=== PATIENT | male | born 1965 | race Caucasian/White ===

== ENCOUNTER 2016-09-10 12:39 | Inpatient (IN) | payer BC, OTHER ==
[2016-09-10 13:47] LABS: Hematocrit 43 % (42-52); Hemoglobin 14.5 g/dl (14.0-18.0); Mean Corpuscular HGB Conc 34 g/dl (31-36); Mean Corpuscular Hemoglobin 30 pg (27-31); Mean Corpuscular Volume 88 fL (80-94); Mean Platelet Volume 8 um3 (7.4-10.4); Red Blood Count 4.86 10^6/ul (4.0-5.4); Red Cell Distribution Width 14 % (10.5-15); White Blood Count 6.5 10^3/ul (3.5-10.8)
[2016-09-10 14:02] LABS: ALT 27 U/L (7-52); AST 18 U/L (13-39); Albumin 4.1 g/dL (3.2-5.2); Alkaline Phosphatase 58 U/L (34-104); Anion Gap 6 mmol/L (2-11); BUN/Creatinine Ratio 15.2 (8-20); Blood Urea Nitrogen 10 mg/dL (6-24); CO2 Carbon Dioxide 23 mmol/L (22-32); Calcium 9.1 mg/dL (8.6-10.3); Chloride 107 mmol/L (101-111); EGFR African American 163.6 (>60); EGFR Non-African American 127.2 (>60); Globulin 2.8 g/dL (2-4); Glucose 180 mg/dL (70-100); Potassium 3.9 mmol/L (3.5-5.0); Sodium 136 mmol/L (133-145); Total Protein 6.9 g/dL (6.4-8.9)
[2016-09-10 14:18] LABS: Urine Bilirubin Negative (Negative); Urine Glucose 2+(150 mg/dL) (Negative); Urine Nitrite Negative (Negative)
[2016-09-10 14:18] LABS: Acetaminophen < 15 mcg/mL; Alcohol < 10 mg/dL (<10); Salicylate < 2.50 mg/dL (<30)
[2016-09-10 14:22] LABS: Benzodiazepine Urine Screen Presumptive Positive (None Detect)
[2016-09-10 14:28] LABS: TSH (Thyroid Stimulating Horm) 0.81 mcIU/mL (0.34-5.60)
[2016-09-10] MEDS ORDERED: LORazepam TAB(*) 1 MG PO ONE (16:17)
[2016-09-10] MEDS ORDERED: Haloperidol TAB* 5 MG PO ONE (16:17)
--- NOTE | 2016-09-10 20:25 | ED ---
I, Oh,Soohzoraida, scribed for Frankie Barrera MD on 09/10/16 at 1327 . Psychiatric Complaint - HPI Summary HPI Summary: Female family member present at bedside answers most of the questions. This 50 y/o male presents to ED for auditory hallucination and paranoia since weeks ago. Pt is reported to have made paranoid comments at work, involving someone stealing his money. Family member present at bedside reports sleep disturbances. Pt reports good appetite, and denies any self harm. PMHx does not include HTN or DM. Pt is currently not on lithium. Pt chews tobacco. 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 - History Of Current Complaint Chief Complaint: [facility]ental[facility] Time Seen by Provider: 09/10/16 13:08 Hx Obtained From: Patient, Family/Filler Operator Onset/Duration: Gradual Onset, Still Present Timing: Constant Severity Initially: Moderate Severity Currently: Moderate Character: Manic, Anxious Aggravating Factor(s): Nothing Alleviating Factor(s): Nothing Associated Signs And Symptoms: Positive: Sleep Disturbance - Allergies/Home Medications Allergies/Adverse Reactions: Allergies Allergy/AdvReac Type Severity Reaction Status Date / Time No Known Allergies Allergy Verified 10/09/12 17:57 Home Medications: Home Medications Diazepam TAB(*) [Valium TAB(*)] 10 mg PO TID 09/10/16 [History Confirmed ] Gabapentin TAB(NF) [Neurontin 600 mg TAB(NF)] 600 mg PO TID 09/10/16 [History Confirmed 09/10/16] QUEtiapine TAB* [SEROquel TAB*] 100 mg PO BEDTIME 09/10/16 [History Confirmed ] Sertraline* [Zoloft*] 200 mg PO DAILY 09/10/16 [History Confirmed 09/10/16] Zolpidem TAB* [Ambien TAB*] 10 mg PO BEDTIME PRN 09/10/16 [History Confirmed 05/19] guanFACINE TAB* [Tenex TAB*] 2 mg PO BEDTIME 09/10/16 [History Confirmed ] PMH/Surg Hx/FS Hx/Imm Hx Endocrine/Hematology History: Denies: Hx Anticoagulant Therapy, Hx Diabetes, Hx Thyroid Disease Cardiovascular History: Denies: Hx Hypertension, Hx Pacemaker/ICD Respiratory History: Denies: Hx Asthma, Hx Chronic Obstructive Pulmonary Disease (COPD) History: Denies: Hx Renal Disease Neurological History: Denies: Hx Dementia, Hx Seizures Psychiatric History: Denies: Hx Substance Abuse Infectious Disease History: No Infectious Disease History: Denies: Hx Hepatitis, Hx Human Immunodeficiency Virus (HIV), Traveled Outside the [place] in Last 30 Days - Family History Known Family History: Negative: Cardiac Disease - Social History Occupation: Employed Full-time - 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 The skin is warm and dry and skin color reflects adequate perfusion. Good skin turgor. HEENT: The head is normocephalic and atraumatic. The pupils are equal and reactive. The conjunctivae are clear and without drainage. Nares are patent and without drainage. Mouth reveals moist mucous membranes and the throat is without erythema and exudate. The external ears are intact. The ear canals are patent and without drainage. The tympanic membranes are intact. Neck is supple with full range of motion and non-tender. There are no carotid bruits. There is no neck vein distension. Respiratory: Chest is non-tender. Lungs are clear to auscultation and breath sounds are symmetrical and equal. Cardiovascular: Hear is regular rate and rhythm. There is no murmur or rub auscultated. There is no peripheral edema and pulses are symmetrical and equal. Abdomen: The abdomen is soft and non-tender. There are good bowel sounds heard in all four quadrants and there is no organomegaly palpated. Musculoskeletal: There is no back pain noted. Extremities are non-tender with full range of motion. There is good capillary refill. There is no peripheral edema or calf tenderness elicited. Neurological: Patient is alert and oriented to person, place and time. The patient has symmetrical motor strength in all four extremities and LOGAN. Cranial nerves are grossly intact. Deep tendon reflexes are symmetrical and equal in all four extremities. Psychiatric: Flat affect. Mild paranoia. Triage Information Reviewed: Yes Vital Signs On Initial Exam: Initial Vitals Temp Pulse Resp BP Pulse Ox 98.2 F 69 15 148/74 100 09/10/16 12:48 09/10/16 12:48 09/10/16 12:48 09/10/16 12:48 09/10/16 12:48 Vital Signs Reviewed: Yes Diagnostics - Vital Signs Vital Signs Temp Pulse Resp BP Pulse Ox 09/10/16 12:48 98.2 F 69 15 148/74 100 - Laboratory Lab Results: Lab Results 09/10/16 09/10/16 09/10/16 Range/Units 13:35 13:35 13:58 WBC 6.5 (3.5-10.8) 10^3/ul RBC 4.86 (4.0-5.4) 10^6/ul Hgb 14.5 (14.0-18.0) g/dl Hct 43 (42-52) % MCV 88 (80-94) fL MCH 30 (27-31) pg MCHC 34 (31-36) g/dl RDW 14 (10.5-15) % Plt Count 171 (150-450) 10^3/ul MPV 8 (7.4-10.4) um3 Neut % (Auto) 64.2 (38-83) % Lymph % (Auto) 24.3 L (25-47) % Kidder % (Auto) 8.9 (1-9) % Eos % (Auto) 1.8 (0-6) % Baso % (Auto) 0.8 (0-2) % Absolute Neuts (auto) 4.2 (1.5-7.7) 10^3/ul Absolute Lymphs (auto) 1.6 (1.0-4.8) 10^3/ul Absolute Monos (auto) 0.6 (0-0.8) 10^3/ul Absolute Eos (auto) 0.1 (0-0.6) 10^3/ul Absolute Basos (auto) 0 (0-0.2) 10^3/ul Absolute Nucleated RBC 0 10^3/ul Nucleated RBC % 0 Sodium 136 (133-145) mmol/L Potassium 3.9 (3.5-5.0) mmol/L Chloride 107 (101-111) mmol/L Carbon Dioxide 23 (22-32) mmol/L Anion Gap 6 (2-11) mmol/L BUN 10 (6-24) mg/dL Creatinine 0.66 L (0.67-1.17) mg/dL Est GFR ( Amer) 163.6 (>60) Est GFR (Non-Af Amer) 127.2 (>60) BUN/Creatinine Ratio 15.2 (8-20) Glucose 180 H (70-100) mg/dL Calcium 9.1 (8.6-10.3) mg/dL Total Bilirubin 0.30 (0.2-1.0) mg/dL AST 18 (13-39) U/L ALT 27 (7-52) U/L Alkaline Phosphatase 58 (34-104) U/L Total Protein 6.9 (6.4-8.9) g/dL Albumin 4.1 (3.2-5.2) g/dL Globulin 2.8 (2-4) g/dL Albumin/Globulin Ratio 1.5 (1-3) TSH 0.81 (0.34-5.60) mcIU/mL Urine Color Yellow Urine Appearance Cloudy Urine pH 5.0 (5-9) Ur Specific Sharps 1.027 (1.010-1.030) Urine Protein Negative (Negative) Urine Ketones Negative (Negative) Urine Blood Negative (Negative) Urine Nitrate Negative (Negative) Urine Bilirubin Negative (Negative) Urine Urobilinogen Negative (Negative) Ur Leukocyte Esterase Negative (Negative) Urine Glucose 2+(150 mg/dl) H (Negative) Salicylates < 2.50 (<30) mg/dL Urine Opiates Screen (None Detect) Acetaminophen < 15 mcg/mL Ur Barbiturates Screen (None Detect) Ur Phencyclidine Scrn (None Detect) Ur Amphetamines Screen (None Detect) U Benzodiazepines Scrn (None Detect) Urine Cocaine Screen (None Detect) U Cannabinoids Screen (None Detect) Serum Alcohol < 10 (<10) mg/dL 09/10/16 Range/Units 13:58 WBC (3.5-10.8) 10^3/ul RBC (4.0-5.4) 10^6/ul Hgb (14.0-18.0) g/dl Hct (42-52) % MCV (80-94) fL MCH (27-31) pg MCHC (31-36) g/dl RDW (10.5-15) % Plt Count (150-450) 10^3/ul MPV (7.4-10.4) um3 Neut % (Auto) (38-83) % Lymph % (Auto) (25-47) % Kidder % (Auto) (1-9) % Eos % (Auto) (0-6) % Baso % (Auto) (0-2) % Absolute Neuts (auto) (1.5-7.7) 10^3/ul Absolute Lymphs (auto) (1.0-4.8) 10^3/ul Absolute Monos (auto) (0-0.8) 10^3/ul Absolute Eos (auto) (0-0.6) 10^3/ul Absolute Basos (auto) (0-0.2) 10^3/ul Absolute Nucleated RBC 10^3/ul Nucleated RBC % Sodium (133-145) mmol/L Potassium (3.5-5.0) mmol/L Chloride (101-111) mmol/L Carbon Dioxide (22-32) mmol/L Anion Gap (2-11) mmol/L BUN (6-24) mg/dL Creatinine (0.67-1.17) mg/dL Est GFR ( Amer) (>60) Est GFR (Non-Af Amer) (>60) BUN/Creatinine Ratio (8-20) Glucose (70-100) mg/dL Calcium (8.6-10.3) mg/dL Total Bilirubin (0.2-1.0) mg/dL AST (13-39) U/L ALT (7-52) U/L Alkaline Phosphatase (34-104) U/L Total Protein (6.4-8.9) g/dL Albumin (3.2-5.2) g/dL Globulin (2-4) g/dL Albumin/Globulin Ratio (1-3) TSH (0.34-5.60) mcIU/mL Urine Color Urine Appearance Urine pH (5-9) Ur Specific Sharps (1.010-1.030) Urine Protein (Negative) Urine Ketones (Negative) Urine Blood (Negative) Urine Nitrate (Negative) Urine Bilirubin (Negative) Urine Urobilinogen (Negative) Ur Leukocyte Esterase (Negative) Urine Glucose (Negative) Salicylates (<30) mg/dL Urine Opiates Screen Presumptive positive H (None Detect) Acetaminophen mcg/mL Ur Barbiturates Screen None detected (None Detect) Ur Phencyclidine Scrn None detected (None Detect) Ur Amphetamines Screen None detected (None Detect) U Benzodiazepines Scrn Presumptive positive H (None Detect) Urine Cocaine Screen None detected (None Detect) U Cannabinoids Screen None detected (None Detect) Serum Alcohol (<10) mg/dL Result Diagrams: 09/10/16 13:35 09/10/16 13:35 Lab Statement: Any lab studies that have been ordered have been reviewed, and results considered in the medical decision making process. Course/Dx - Differential Dx/Clinical Impression Differential Diagnosis/HQI/PQRI: Positive: Acute Psychosis, Depression, Suicidal Ideation, Suicidal Gesture Provider Diagnosis: Psychosis, Depression - Physician Notifications Instructed by Provider To: Admit As Inpatient - voluntary admission Patient Is Medically Stable For: Psych Evaluation - at 1427 PM Discharge - Discharge Plan Condition: Stable Disposition: ADMITTED TO [facility] The documentation as recorded by the Colton loera Soohyun accurately reflects the service I personally performed and the decisions made by , Frankie Barrera MD.
[2016-09-10] MEDS ORDERED: diPHENhydraMINE PO* 50 MG ONE (21:51)
[2016-09-10] MEDS ORDERED: Acetaminophen TAB* 325 MG PO PRN (22:17)
[2016-09-10] MEDS ORDERED: Al Hydrox/Mg Hydrox/Simet LIQ* 30 ML UDC PO PRN (22:17)
[2016-09-10] MEDS ORDERED: diPHENhydraMINE PO* 50 MG PO PRN (22:18)
[2016-09-10] MEDS: Gabapentin CAP(*) 300 MG PO SCH (22:45)
[2016-09-10] MEDS: guanFACINE TAB* 1 MG PO SCH (22:46)
[2016-09-10] MEDS ORDERED: QUEtiapine TAB* 100 MG PO SCH (23:00)
[2016-09-11] MEDS: Vitamin THERAPEUTIC TAB PO SCH (10:52)
[2016-09-11] MEDS: Gabapentin CAP(*) 300 MG PO SCH ×3 (10:52→20:07)
[2016-09-11] MEDS: Sertraline* 100 MG TAB PO SCH (10:53)
--- NOTE | 2016-09-11 13:45 | PN ---
MHU: Group Therapy Note - Service Type Service Type: [id number] Group Psychotherapy - Cognitive Behavioral Group Therapy ( CBT):Patient was attentive and participatory in CBT programming this morning, and remained in good behavioral control. Patient expressed positive insights regarding relevant treatment interventions and goals.
[2016-09-11] MEDS ORDERED: Zolpidem TAB* 5 MG PO PRN (14:28)
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
[2016-09-11] MEDS: guanFACINE TAB* 1 MG PO SCH (20:07)
[2016-09-11] MEDS: Diazepam TAB(*) 5 MG PO SCH (20:08)
[2016-09-11] MEDS: Haloperidol TAB* 5 MG PO SCH (20:08)
--- NOTE | 2016-09-11 20:09 | RAD ---
HISTORY: Auditory hallucinations and paranoia x2 weeks. Requisition includes "concussion" 3 years earlier. COMPARISONS: None TECHNIQUE: The following sequences were obtained of the head: Sagittal T1-weighted images, axial T2-weighted images, axial FLAIR images, axial susceptibility weighted images, axial T1-weighted images. Additionally, axial diffusion-weighted images were obtained with calculated apparent diffusion coefficients.. FINDINGS: HEMORRHAGE/INFARCT: There is no hemorrhage or acute infarct. MASSES/SHIFT: There is no mass or shift. EXTRA-AXIAL SPACES/MENINGES: There are no extra-axial fluid collections. SULCI AND VENTRICLES: The sulci and ventricles are normal in size and position for the patient's stated age. CEREBRUM: There are no focal parenchymal abnormalities. Abutting the inferior aspect of the left frontal lobe (axial image 15 of 32 and sagittal image 15 of 27) there is a fluid density structure that appears to be contiguous with the cribriform plate measuring 1.2 x 2.5 cm in the axial plane and 9 mm in the cephalocaudal dimension. BRAINSTEM: There are no focal parenchymal abnormalities. CEREBELLUM: There are no focal parenchymal abnormalities. The cerebellar tonsils are normal in size and position. SELLA: The sella is normal. PINEAL: The pineal region is clear. CP ANGLE/TEMPORAL BONES: The labyrinthine structures are grossly normal. VESSELS: Normal flow-voids are noted within the visualized vertebral vasculature. DIFFUSION ABNORMALITIES: There are no diffusion abnormalities. PARANASAL SINUSES/MASTOIDS: The paranasal sinuses are clear. ORBITS: The orbits are unremarkable. BONES AND SOFT TISSUE: No bone or soft tissue abnormalities are noted. IMPRESSION: BENIGN APPEARING CYSTIC FOCUS ABUTTING THE LEFT OF MIDLINE CRIBRIFORM PLATE AND THE MEDIAL INFERIOR ASPECT OF THE LEFT FRONTAL LOBE. POTENTIAL ETIOLOGIES INCLUDE MENINGEAL CYST.
[2016-09-12] MEDS: Gabapentin CAP(*) 300 MG PO SCH ×3 (10:08→20:00)
[2016-09-12] MEDS: Sertraline* 100 MG TAB PO SCH (10:09)
[2016-09-12] MEDS: Diazepam TAB(*) 5 MG PO SCH ×2 (10:09→20:01)
[2016-09-12] MEDS: Haloperidol TAB* 5 MG PO SCH ×2 (10:09→20:02)
[2016-09-12] MEDS: Vitamin THERAPEUTIC TAB PO SCH (10:09)
--- NOTE | 2016-09-12 11:50 | PN ---
MHU: Group Therapy Note - Service Type Service Type: [id number] Group Psychotherapy - Cognitive Behavioral Group Therapy ( CBT):Patient was attentive and participatory in CBT programming this morning, and remained in good behavioral control. Patient expressed positive insights regarding relevant treatment interventions and goals.
--- NOTE | 2016-09-12 15:17 | PN ---
Subjective - Subjective Service Type: 07650 Hosp care 15 min low complexity Subjective: The patient complains bitterly of anxiety and AH. During our conversation he appears easily confused by questions and displays idiosyncratic periods of tensing his body and face and closing his eyes while making a pained grimace. He indicates that he slept poorly without quetiapine, which was held last night after starting haldol. Objective - Appearance Appearance: Obese Dysmorphic Features: No Hygiene: Normal Grooming: Well Kept - Behavior Psychomotor Activities: Abnormal-Increased Exhibits Abnormal Movement: Yes - Attitude and Relatedness Attitude and Relatedness: Gay Indifferance Eye Contact: Fair - Speech Quality: Unpressured Latencies: Normal Quantity: Terse - Mood Patient's Decription of Mood: "Anxious" - Affect Observed Affect: Tense Affect Consistent with: Dysphoria - Thought Process Patient's Thought Process: Circumstantial Thought Content: No Passive Wish, No Suicidal Planning, No Homicidal Ideation, No Paranoid Ideation - Sensorium Experiencing Hallucinations: Yes Type of Hallucinations: Visual: No, Auditory: Yes, Command: Yes - Level of Consciousness Level of Consciousness: Agitated Orientation: Yes Intact, Yes Orientated to Time, Yes Orientated to Place, Yes Orientated to Person - Impulse Control Impulse Control: Tenuous - Insight and Judgement Insight and Judgement: Fair - Group Participation Particating in Group Activities: Yes - Medication Management Medication Management Adherence: Yes Assessment - Assessment Merits Inpatient Hospitalization: For Immediate Safety, Diagnosis Determination , To Initiate Treatment Inpatient DSM-IV Dx: Unspecified Psychotic DO Clinical Impression: 50 y.o. , white male with a documented history of ANTOLIN and Panic DO who presents with 3 years of untreated AH, which are worsening over the past 4 weeks , and an associated suicidal statement in our ER. Plan - Plan Treatment Plan: Name: BIENVENIDO GOLDMAN Birthdate: 1965 [id number] Will increase diazepam from 5 to 10mg PO BID, which is his outpatient dose. Will d/c zolpidem in favor of 100mg of Seroquel, which he also takes as an outpatient. For AH control we will increase haloperidol from 5 to 10mg PO BID. Await MMPI results. MRI of head showed small cystic lesion, likely benign, in left frontal lobe. Continued Medication Management: Start Medication Medications: Current Medications Acetaminophen (Tylenol Tab*) 650 mg PO Q4H PRN PRN Reason: PAIN or TEMP > 101 F Al Hydrox/Mg Hydrox/Simethicone (Maalox Plus*) 30 ml PO Q4H PRN PRN Reason: INDIGESTION Diazepam (Valium Tab(*)) 10 mg PO BID [facility] Diphenhydramine HCl (Benadryl Po*) 50 mg PO Q4H PRN PRN Reason: INSOMNIA Last Admin: 09/11/16 23:13 Dose: 50 mg Gabapentin (Neurontin Cap(*)) 600 mg PO TID [facility] Last Admin: 09/12/16 14:11 Dose: 600 mg Guanfacine HCl (Tenex Tab*) 2 mg PO BEDTIME [facility] Last Admin: 09/11/16 20:07 Dose: 2 mg Haloperidol (Haldol Tab*) 10 mg PO BID [facility] Multivitamins (Theragran Tab*) 1 tab PO DAILY [facility] Last Admin: 09/12/16 10:09 Dose: 1 tab Quetiapine Fumarate (Seroquel Tab*) 100 mg PO BEDTIME [facility] Sertraline HCl (Zoloft*) 200 mg PO DAILY [facility] Last Admin: 09/12/16 10:09 Dose: 200 mg - Discharge Plan Discharge Plan: Inpatient Hospitalization
[2016-09-12] MEDS: guanFACINE TAB* 1 MG PO SCH (20:02)
[2016-09-12] MEDS: QUEtiapine TAB* 100 MG PO SCH (20:03)
[2016-09-13] MEDS: Haloperidol TAB* 5 MG PO SCH ×2 (09:29→20:40)
[2016-09-13] MEDS: Gabapentin CAP(*) 300 MG PO SCH ×3 (09:29→20:39)
[2016-09-13] MEDS: Sertraline* 100 MG TAB PO SCH (09:29)
[2016-09-13] MEDS: Vitamin THERAPEUTIC TAB PO SCH (09:29)
[2016-09-13] MEDS: Diazepam TAB(*) 5 MG PO SCH ×2 (09:30→20:40)
--- NOTE | 2016-09-13 11:48 | PN ---
Subjective - Subjective Service Type: 27583 Hosp care 15 min low complexity Subjective: The patient is far less anxious today and I see no evidence of the episodes of extreme facial tension and grimacing that we noted yesterday. He is tolerating his med changes well and denies untoward effects. The patient has not yet started the MMPI but is encouraged to work on this. He denies AH or SI today. Objective - Appearance Appearance: Obese Dysmorphic Features: No Hygiene: Normal Grooming: Well Kept - Behavior Psychomotor Activities: Normal Exhibits Abnormal Movement: No - Attitude and Relatedness Attitude and Relatedness: Cooperative Eye Contact: Fair - Speech Quality: Unpressured Latencies: Normal Quantity: Appropriate - Mood Patient's Decription of Mood: "Okay" - Affect Observed Affect: Fair Affect Consistent with: Euthymia - Thought Process Patient's Thought Process: Coherent Thought Content: No Passive Wish, No Suicidal Planning, No Homicidal Ideation, No Paranoid Ideation - Sensorium Experiencing Hallucinations: No, Sensorium is Clear Type of Hallucinations: Visual: No, Auditory: No, Command: No - Level of Consciousness Level of Consciousness: Alert Orientation: Yes Intact, Yes Orientated to Time, Yes Orientated to Place, Yes Orientated to Person - Impulse Control Impulse Control: Tenuous - Insight and Judgement Insight and Judgement: Fair - Group Participation Particating in Group Activities: Yes - Medication Management Medication Management Adherence: Yes Assessment - Assessment Merits Inpatient Hospitalization: Diagnosis Determination, For Ongoing Evaluation, Consolidate Improvements Inpatient DSM-IV Dx: Unspecified Psychotic DO Clinical Impression: 50 y.o. , white male with a documented history of ANTOLIN and Panic DO who presents with 3 years of untreated AH, which are worsening over the past 4 weeks , and an associated suicidal statement in our ER. Plan - Plan Treatment Plan: Name: BIENVENIDO GOLDMAN Birthdate: 1965 [id number] Patient appears improved today. Will try to consolidate improvements. Await MMPI results. Cannot rule out malingered illness at this time. Continued Medication Management: Start Medication Medications: Current Medications Acetaminophen (Tylenol Tab*) 650 mg PO Q4H PRN PRN Reason: PAIN or TEMP > 101 F Al Hydrox/Mg Hydrox/Simethicone (Maalox Plus*) 30 ml PO Q4H PRN PRN Reason: INDIGESTION Diazepam (Valium Tab(*)) 10 mg PO BID [facility] Last Admin: 09/13/16 09:30 Dose: 10 mg Diphenhydramine HCl (Benadryl Po*) 50 mg PO Q4H PRN PRN Reason: INSOMNIA Last Admin: 09/11/16 23:13 Dose: 50 mg Gabapentin (Neurontin Cap(*)) 600 mg PO TID [facility] Last Admin: 09/13/16 09:29 Dose: 600 mg Guanfacine HCl (Tenex Tab*) 2 mg PO BEDTIME [facility] Last Admin: 09/12/16 20:02 Dose: 2 mg Haloperidol (Haldol Tab*) 10 mg PO BID [facility] Last Admin: 09/13/16 09:29 Dose: 10 mg Multivitamins (Theragran Tab*) 1 tab PO DAILY [facility] Last Admin: 09/13/16 09:29 Dose: 1 tab Quetiapine Fumarate (Seroquel Tab*) 100 mg PO BEDTIME [facility] Last Admin: 09/12/16 20:03 Dose: 100 mg Sertraline HCl (Zoloft*) 200 mg PO DAILY [facility] Last Admin: 09/13/16 09:29 Dose: 200 mg - Discharge Plan Discharge Plan: Inpatient Hospitalization
--- NOTE | 2016-09-13 11:53 | PN ---
[facility]: Group Therapy Note - Service Type Service Type: 23049 Group Psychotherapy - Cognitive Behavioral Group Therapy ( CBT):Patient was attentive and participatory in CBT programming this morning, and remained in good behavioral control. Patient expressed positive insights regarding relevant treatment interventions and goals.
[2016-09-13] MEDS: guanFACINE TAB* 1 MG PO SCH (20:40)
[2016-09-13] MEDS: QUEtiapine TAB* 100 MG PO SCH (20:40)
[2016-09-14 07:48] VITALS: BP 115/70
[2016-09-14] MEDS: Sertraline* 100 MG TAB PO SCH (10:11)
[2016-09-14] MEDS: Diazepam TAB(*) 5 MG PO SCH (10:11)
[2016-09-14] MEDS: Vitamin THERAPEUTIC TAB PO SCH (10:11)
[2016-09-14] MEDS: Haloperidol TAB* 5 MG PO SCH (10:12)
[2016-09-14] MEDS: Gabapentin CAP(*) 300 MG PO SCH ×2 (10:12→14:16)
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
== END 2016-09-14 14:30 | disposition home or self-care (01) | DRG 751 ==
LOC: ED 12:39 → BSU 20:18
PROVIDERS: ADMIT Psychiatry & Neurology Psychiatry; ATTEND Psychiatry & Neurology Psychiatry
DX: F29 Unspecified psychosis not due to a substance or known physiological condition (principal); F41.0 Panic disorder [episodic paroxysmal anxiety]; F41.1 Generalized anxiety disorder; F17.220 Nicotine dependence, chewing tobacco, uncomplicated; Z87.820 Personal history of traumatic brain injury; Z79.899 Other long term (current) drug therapy
CPT/HCPCS: 36415; 70551; 80053; 80307; 80320; 80329; 81003; 84443; 85025; 90853; 99222; 99231; 99238; A9270-GY; G0480

== ENCOUNTER 2017-05-24 13:25 | Inpatient (IN) | payer OTHER ==
[2017-05-24 14:03] LABS: Hematocrit 45 % (42-52); Hemoglobin 15.6 g/dl (14.0-18.0); Mean Corpuscular HGB Conc 35 g/dl (31-36); Mean Corpuscular Hemoglobin 30 pg (27-31); Mean Corpuscular Volume 87 fL (80-94); Mean Platelet Volume 8 um3 (7.4-10.4); Red Blood Count 5.14 10^6/ul (4.0-5.4); Red Cell Distribution Width 14 % (10.5-15); White Blood Count 6.8 10^3/ul (3.5-10.8)
[2017-05-24] MEDS ORDERED: LORazepam TAB(*) 1 MG PO ONE ×2 (14:10→17:40)
[2017-05-24 14:20] LABS: ALT 31 U/L (7-52); AST 15 U/L (13-39); Albumin 4.3 g/dL (3.2-5.2); Alkaline Phosphatase 68 U/L (34-104); Anion Gap 8 mmol/L (2-11); BUN/Creatinine Ratio 16.9 (8-20); Blood Urea Nitrogen 12 mg/dL (6-24); CO2 Carbon Dioxide 24 mmol/L (22-32); Calcium 9.7 mg/dL (8.6-10.3); Chloride 105 mmol/L (101-111); EGFR African American 149.8 (>60); EGFR Non-African American 116.5 (>60); Globulin 3.4 g/dL (2-4); Glucose 185 mg/dL (70-100); Potassium 3.6 mmol/L (3.5-5.0); Sodium 137 mmol/L (133-145); Total Protein 7.7 g/dL (6.4-8.9)
[2017-05-24 14:32] LABS: Acetaminophen < 15 mcg/mL; Alcohol < 10 mg/dL (<10); Salicylate < 2.50 mg/dL (<30)
[2017-05-24 14:42] LABS: TSH (Thyroid Stimulating Horm) 0.45 mcIU/mL (0.34-5.60)
[2017-05-24 18:57] LABS: Urine Bilirubin Negative (Negative); Urine Glucose 1+(50 mg/dL) (Negative); Urine Nitrite Negative (Negative)
[2017-05-24 19:19] LABS: Benzodiazepine Urine Screen Presumptive Positive (None Detect)
--- NOTE | 2017-05-24 19:32 | ED ---
Rivas Merchant Thomas, scribed for Norma Leahy MD on 05/24/17 at 1342 . Psychiatric Complaint - HPI Summary HPI Summary: The pt is a 51 y/o M presenting to the ED with SI. The patient says he has been hearing voices for a long time. Pt denies any physical pain or physical complaints. He is accompanied by Malou, his friend and health care proxy. His PMD is Dr. Thomas. He typically lives in his car. He says that I dont feel like Im here, everything has an echo to it, and when I look out there all I can see is and it is black. He is tearful in the examination room. PMHx significant for HLD. - History Of Current Complaint Chief Complaint: EDMentalHealth Time Seen by Provider: 05/24/17 13:32 Hx Obtained From: Patient, Family/Hand Stemmer - accompanied by Malou, friend and health care proxy Onset/Duration: Still Present Timing: Constant Severity Currently: Severe Character: Depressed Aggravating Factor(s): Nothing Alleviating Factor(s): Nothing Associated Signs And Symptoms: Positive: Hallucinating Related History: Positive For: Prior Psychiatric Issues Has Suicidal: Reports: Thoughts - Allergies/Home Medications Allergies/Adverse Reactions: Allergies Allergy/AdvReac Type Severity Reaction Status Date / Time No Known Allergies Allergy Verified 09/11/16 01:26 Home Medications: Home Medications ARIPiprazole TAB* [Abilify 15 MG TAB*] 15 mg PO DAILY 05/24/17 [History Confirmed 05/24/17] PMH/Surg Hx/FS Hx/Imm Hx Previously Healthy: No Endocrine/Hematology History: Denies: Hx Anticoagulant Therapy, Hx Diabetes, Hx Thyroid Disease Cardiovascular History: Denies: Hx Hypertension, Hx Pacemaker/ICD Respiratory History: Denies: Hx Asthma, Hx Chronic Obstructive Pulmonary Disease (COPD) History: Denies: Hx Renal Disease Sensory History: Reports: Hx Contacts or Glasses Denies: Hx Hearing Aid Opthamlomology History: Reports: Hx Contacts or Glasses Neurological History: Denies: Hx Dementia, Hx Seizures Psychiatric History: Reports: Hx Community Mental Health Tx Denies: Hx Eating Disorder, Hx Panic Disorder, Hx of Violent Episodes Against Others, Hx Substance Abuse - Surgical History Surgery Procedure, Year, and Place: TONSILS Infectious Disease History: No Infectious Disease History: Denies: Hx Hepatitis, Hx Human Immunodeficiency Virus (HIV), Traveled Outside the [place] in Last 30 Days - Family History Known Family History: Positive: Other - Positive for mental illness in brothers Negative: Cardiac Disease - Social History Alcohol Use: None Hx Substance Use: No Substance Use Type: Reports: None Hx Tobacco Use: Yes Smoking Status (MU): Unknown if Ever Smoked Review of Systems Negative: Fever Psychological: Other - SI, auditory halluicinations, depersonalization All Other Systems Reviewed And Are Negative: Yes Physical Exam Triage Information Reviewed: Yes Vital Signs On Initial Exam: Initial Vitals Temp Pulse Resp BP Pulse Ox 98.0 F 78 18 124/75 97 05/24/17 13:25 05/24/17 13:25 05/24/17 13:25 05/24/17 13:25 05/24/17 13:25 Vital Signs Reviewed: Yes Appearance: Positive: Well-Appearing, No Pain Distress Skin: Positive: Warm, Skin Color Reflects Adequate Perfusion, Dry Eyes: Positive: EOMI, BRENDA Neck: Positive: Supple, Nontender Respiratory/Lung Sounds: Positive: Clear to Auscultation, Breath Sounds Present. Negative: Rales, Rhonchi, Wheezes Cardiovascular: Positive: RRR, Other - No gallop. Negative: Murmur, Rub Abdomen Description: Positive: Nontender, Soft. Negative: Distended, Guarding, Other: - No rebound Musculoskeletal: Positive: Strength/ROM Intact. Negative: Edema Left, Edema Right Neurological: Positive: Sensory/Motor Intact, Alert, Oriented to Person Place, Time, CN Intact II-III Psychiatric: Positive: Other - He is tearful in the examination room. Diagnostics - Vital Signs Vital Signs Temp Pulse Resp BP Pulse Ox 05/24/17 13:25 98.0 F 78 18 124/75 97 - Laboratory Lab Results: Lab Results 05/24/17 05/24/17 05/24/17 Range/Units 13:46 13:46 15:15 WBC 6.8 (3.5-10.8) 10^3/ul RBC 5.14 (4.0-5.4) 10^6/ul Hgb 15.6 (14.0-18.0) g/dl Hct 45 (42-52) % MCV 87 (80-94) fL MCH 30 (27-31) pg MCHC 35 (31-36) g/dl RDW 14 (10.5-15) % Plt Count 202 (150-450) 10^3/ul MPV 8 (7.4-10.4) um3 Neut % (Auto) 66.7 (38-83) % Lymph % (Auto) 26.0 (25-47) % [place] % (Auto) 6.3 (1-9) % Eos % (Auto) 0.7 (0-6) % Baso % (Auto) 0.3 (0-2) % Absolute Neuts (auto) 4.5 (1.5-7.7) 10^3/ul Absolute Lymphs (auto) 1.8 (1.0-4.8) 10^3/ul Absolute Monos (auto) 0.4 (0-0.8) 10^3/ul Absolute Eos (auto) 0 (0-0.6) 10^3/ul Absolute Basos (auto) 0 (0-0.2) 10^3/ul Absolute Nucleated RBC 0 10^3/ul Nucleated RBC % 0 Sodium 137 (133-145) mmol/L Potassium 3.6 (3.5-5.0) mmol/L Chloride 105 (101-111) mmol/L Carbon Dioxide 24 (22-32) mmol/L Anion Gap 8 (2-11) mmol/L BUN 12 (6-24) mg/dL Creatinine 0.71 (0.67-1.17) mg/dL Est GFR ( Amer) 149.8 (>60) Est GFR (Non-Af Amer) 116.5 (>60) BUN/Creatinine Ratio 16.9 (8-20) Glucose 185 H (70-100) mg/dL Calcium 9.7 (8.6-10.3) mg/dL Total Bilirubin 0.90 (0.2-1.0) mg/dL AST 15 (13-39) U/L ALT 31 (7-52) U/L Alkaline Phosphatase 68 (34-104) U/L Total Protein 7.7 (6.4-8.9) g/dL Albumin 4.3 (3.2-5.2) g/dL Globulin 3.4 (2-4) g/dL Albumin/Globulin Ratio 1.3 (1-3) TSH 0.45 (0.34-5.60) mcIU/mL Urine Color Yellow Urine Appearance Clear Urine pH 6.0 (5-9) Ur Specific [place] 1.017 (1.010-1.030) Urine Protein Negative (Negative) Urine Ketones Negative (Negative) Urine Blood Negative (Negative) Urine Nitrate Negative (Negative) Urine Bilirubin Negative (Negative) Urine Urobilinogen Negative (Negative) Ur Leukocyte Esterase Negative (Negative) Urine Glucose 1+(50 mg/dl) H (Negative) Salicylates < 2.50 (<30) mg/dL Urine Opiates Screen (None Detect) Acetaminophen < 15 mcg/mL Ur Barbiturates Screen (None Detect) Ur Phencyclidine Scrn (None Detect) Ur Amphetamines Screen (None Detect) U Benzodiazepines Scrn (None Detect) Urine Cocaine Screen (None Detect) U Cannabinoids Screen (None Detect) Serum Alcohol < 10 (<10) mg/dL 05/24/17 Range/Units 15:15 WBC (3.5-10.8) 10^3/ul RBC (4.0-5.4) 10^6/ul Hgb (14.0-18.0) g/dl Hct (42-52) % MCV (80-94) fL MCH (27-31) pg MCHC (31-36) g/dl RDW (10.5-15) % Plt Count (150-450) 10^3/ul MPV (7.4-10.4) um3 Neut % (Auto) (38-83) % Lymph % (Auto) (25-47) % [place] % (Auto) (1-9) % Eos % (Auto) (0-6) % Baso % (Auto) (0-2) % Absolute Neuts (auto) (1.5-7.7) 10^3/ul Absolute Lymphs (auto) (1.0-4.8) 10^3/ul Absolute Monos (auto) (0-0.8) 10^3/ul Absolute Eos (auto) (0-0.6) 10^3/ul Absolute Basos (auto) (0-0.2) 10^3/ul Absolute Nucleated RBC 10^3/ul Nucleated RBC % Sodium (133-145) mmol/L Potassium (3.5-5.0) mmol/L Chloride (101-111) mmol/L Carbon Dioxide (22-32) mmol/L Anion Gap (2-11) mmol/L BUN (6-24) mg/dL Creatinine (0.67-1.17) mg/dL Est GFR ( Amer) (>60) Est GFR (Non-Af Amer) (>60) BUN/Creatinine Ratio (8-20) Glucose (70-100) mg/dL Calcium (8.6-10.3) mg/dL Total Bilirubin (0.2-1.0) mg/dL AST (13-39) U/L ALT (7-52) U/L Alkaline Phosphatase (34-104) U/L Total Protein (6.4-8.9) g/dL Albumin (3.2-5.2) g/dL Globulin (2-4) g/dL Albumin/Globulin Ratio (1-3) TSH (0.34-5.60) mcIU/mL Urine Color Urine Appearance Urine pH (5-9) Ur Specific [place] (1.010-1.030) Urine Protein (Negative) Urine Ketones (Negative) Urine Blood (Negative) Urine Nitrate (Negative) Urine Bilirubin (Negative) Urine Urobilinogen (Negative) Ur Leukocyte Esterase (Negative) Urine Glucose (Negative) Salicylates (<30) mg/dL Urine Opiates Screen None detected (None Detect) Acetaminophen mcg/mL Ur Barbiturates Screen None detected (None Detect) Ur Phencyclidine Scrn None detected (None Detect) Ur Amphetamines Screen None detected (None Detect) U Benzodiazepines Scrn Presumptive positive H (None Detect) Urine Cocaine Screen None detected (None Detect) U Cannabinoids Screen None detected (None Detect) Serum Alcohol (<10) mg/dL Result Diagrams: 05/24/17 13:46 05/24/17 13:46 Lab Statement: Any lab studies that have been ordered have been reviewed, and results considered in the medical decision making process. Course/Dx - Course Course Of Treatment: admitted in stable condition with the diagnosis of depression - Differential Dx/Clinical Impression Provider Diagnosis: Unspecified psychosis Discharge - Discharge Plan Condition: Stable Disposition: ADMITTED TO [facility] documentation as recorded by the Rivas loera Thomas accurately reflects the service I personally performed and the decisions made by , Norma Leahy MD.
[2017-05-24] MEDS ORDERED: Al Hydrox/Mg Hydrox/Simet LIQ* 30 ML UDC PO PRN (22:24)
[2017-05-24] MEDS ORDERED: Acetaminophen TAB* 325 MG PO PRN (22:24)
[2017-05-24] MEDS ORDERED: Haloperidol TAB* 5 MG PO SCH (23:30)
[2017-05-25] MEDS: Vitamin THERAPEUTIC TAB PO SCH (09:25)
[2017-05-25] MEDS: Haloperidol TAB* 5 MG PO PRN ×2 (10:58→21:41)
[2017-05-25] MEDS ORDERED: OLANzapine TAB*ODT* 10 MG TAB PO ONE (13:41)
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
[2017-05-26] MEDS: Vitamin THERAPEUTIC TAB PO SCH (09:15)
[2017-05-26] MEDS: Haloperidol TAB* 5 MG PO PRN ×2 (11:20→18:36)
[2017-05-26] MEDS: LORazepam TAB(*) 0.5 MG PO PRN ×2 (12:25→20:24)
[2017-05-26] MEDS ORDERED: OLANzapine TAB* 5 MG PO ONE (14:19)
[2017-05-26] MEDS ORDERED: OLANzapine TAB*ODT* 5 MG ONE (14:34)
[2017-05-26] MEDS ORDERED: OLANzapine TAB* 5 MG ONE (14:36)
[2017-05-26] MEDS ORDERED: OLANzapine TAB* 5 MG PO SCH (21:00)
[2017-05-27] MEDS: Vitamin THERAPEUTIC TAB PO SCH (09:30)
[2017-05-27] MEDS: Haloperidol TAB* 5 MG PO PRN (10:36)
[2017-05-27] MEDS: LORazepam TAB(*) 0.5 MG PO PRN ×2 (10:36→14:35)
[2017-05-27] MEDS ORDERED: OLANzapine TAB* 5 MG PO ONE (13:58)
[2017-05-27] MEDS: OLANzapine TAB* 5 MG PO SCH ×2 (14:34→20:00)
--- NOTE | 2017-05-27 16:07 | PN ---
Subjective - Subjective Service Type: 44056 Hosp care 25 min moderate complexity Subjective: Patient reports "I don't feel like myself." He states he feels like he is out of his body looking down, that there is out there around him and that he has flown [place]. Patient endorses command AH telling to kill himself. He reports depressed mood with anxious distress. He states that zyprexa dose given to him during the day was helpful and requests to have it prescribed twice a day. Objective - Appearance Appearance: Obese Dysmorphic Features: Yes Hygiene: Normal Grooming: Fairly Well Kept - Behavior Psychomotor Activities: Normal Exhibits Abnormal Movement: No - Attitude and Relatedness Attitude and Relatedness: Psychotically Related Eye Contact: Good - Speech Quality: Unpressured Latencies: Normal Quantity: Appropriate - Mood Patient's Decription of Mood: "Anxious" - Affect Observed Affect: Expansive Affect Consistent with: Euthymia - Thought Process Patient's Thought Process: Loose Associations Thought Content: No Passive Wish, No Suicidal Planning, No Homicidal Ideation, No Paranoid Ideation - Sensorium Experiencing Hallucinations: Yes Type of Hallucinations: Visual: Yes, Auditory: Yes, Command: Yes - Level of Consciousness Level of Consciousness: Alert Orientation: Yes Intact, Yes Orientated to Time, Yes Orientated to Place, Yes Orientated to Person - Impulse Control Impulse Control: Tenuous - Insight and Judgement Insight and Judgement: Fair - Group Participation Particating in Group Activities: Yes - Medication Management Medication Management Adherence: Yes Assessment - Assessment Merits Inpatient Hospitalization: For Immediate Safety, For Stabilization, To Initiate Treatment, For Ongoing Evaluation, For Discharge Planning, Pending Safe DC Plan Inpatient DSM-IV Dx: unspecified psychotic d/o; r/o schizophrenia; r/o psychosis secondary to TBI; obesity, r/o diabetes mellitus. Plan - Plan Treatment Plan: Name: BIENVENIDO GOLDMAN Birthdate: 1965 [id number] Increase olanzapine and lorazepam. Continue acute intensive psychiatric treatment. Continued Medication Management: Different Medication Medications: Current Medications Acetaminophen (Tylenol Tab*) 650 mg PO Q4H PRN PRN Reason: PAIN or TEMP > 101 F Al Hydrox/Mg Hydrox/Simethicone (Maalox Plus*) 30 ml PO Q4H PRN PRN Reason: INDIGESTION Haloperidol (Haldol Tab*) 5 mg PO Q6HR PRN PRN Reason: AGITATION/ANXIETY Last Admin: 05/27/17 10:36 Dose: 5 mg Lorazepam (Ativan Tab(*)) 0.5 mg PO TID PRN PRN Reason: ANXIETY Last Admin: 05/27/17 14:35 Dose: 0.5 mg Multivitamins (Theragran Tab*) 1 tab PO DAILY [facility] Last Admin: 05/27/17 09:30 Dose: Not Given Olanzapine (Zyprexa Tab*) 5 mg PO BID [facility] Last Admin: 05/27/17 14:34 Dose: 5 mg - Discharge Plan Discharge Plan: Outpatient Follow Up Outpatient Program: Private Clinician(s) - Dr Garcia
[2017-05-28] MEDS: Vitamin THERAPEUTIC TAB PO SCH (11:13)
[2017-05-28] MEDS: OLANzapine TAB* 5 MG PO SCH ×2 (11:13→20:08)
[2017-05-28] MEDS: Haloperidol TAB* 5 MG PO PRN (11:14)
--- NOTE | 2017-05-28 14:11 | PN ---
Subjective - Subjective Service Type: 92573 Hosp care 25 min moderate complexity Subjective: Patient reports much improved symptoms. He states he is no longer anxious and does not have sensations of being outside of his body or other delusions. He denies AH or intrusive thoughts. He reports sleeping well last night. He states he would like to be discharged and plans to stay with his girlfriend, Radha. He agrees to follow up with outpatient mental health services. Radha visited over lunch. She states she has known him for 10 years "and this is the most organized I have ever seen him." She reports he is much more interactive and able to converse with her. She inquires about resources for case management, housing resources and process for applying for disability. Pluck Trimmer encouraged use of TCM and case management. Objective - Appearance Appearance: Obese Dysmorphic Features: No Hygiene: Normal Grooming: Well Kept - Behavior Psychomotor Activities: Normal Exhibits Abnormal Movement: No - Attitude and Relatedness Attitude and Relatedness: Cooperative Eye Contact: Good - Speech Quality: Unpressured Latencies: Normal Quantity: Appropriate - Mood Patient's Decription of Mood: "better" - Affect Observed Affect: Good Affect Consistent with: Euthymia - Thought Process Patient's Thought Process: Coherent, Goal Directed Thought Content: No Passive Wish, No Suicidal Planning, No Homicidal Ideation, No Paranoid Ideation - Sensorium Experiencing Hallucinations: No, Sensorium is Clear Type of Hallucinations: Visual: No, Auditory: No, Command: No - Level of Consciousness Level of Consciousness: Alert Orientation: Yes Intact, Yes Orientated to Time, Yes Orientated to Place, Yes Orientated to Person - Impulse Control Impulse Control: Intact - Insight and Judgement Insight and Judgement: Fair - Group Participation Particating in Group Activities: Yes - Medication Management Medication Management Adherence: Yes Assessment - Assessment Merits Inpatient Hospitalization: For Immediate Safety, For Stabilization, For Discharge Planning, Pending Safe DC Plan Inpatient DSM-IV Dx: unspecified psychotic d/o; r/o schizophrenia; r/o psychosis secondary to TBI; obesity, r/o diabetes mellitus. Plan - Plan Treatment Plan: Name: BIENVENIDO GOLDMAN Birthdate: 1965 [id number] Add sertraline for mood and anxiety. DC haloperidol prn due to olanzapine use; patient utilizing lorazepam prn for anxiety. Continue acute intensive psychiatric treatment. Discharge planning to include referral to [facility] and social service resources. Tentative discharge tomorrow morning. Continued Medication Management: Different Medication Medications: Current Medications Acetaminophen (Tylenol Tab*) 650 mg PO Q4H PRN PRN Reason: PAIN or TEMP > 101 F Al Hydrox/Mg Hydrox/Simethicone (Maalox Plus*) 30 ml PO Q4H PRN PRN Reason: INDIGESTION Lorazepam (Ativan Tab(*)) 0.5 mg PO TID PRN PRN Reason: ANXIETY Last Admin: 05/27/17 14:35 Dose: 0.5 mg Multivitamins (Theragran Tab*) 1 tab PO DAILY [facility] Last Admin: 05/28/17 11:13 Dose: 1 tab Olanzapine (Zyprexa Tab*) 5 mg PO BID [facility] Last Admin: 05/28/17 11:13 Dose: 5 mg Sertraline HCl (Zoloft*) 50 mg PO BEDTIME WILMA - Discharge Plan Discharge Plan: Outpatient Follow Up Outpatient Program: [facility]
[2017-05-28] MEDS: LORazepam TAB(*) 0.5 MG PO PRN ×2 (15:52→20:23)
[2017-05-28] MEDS ORDERED: Sertraline* 50 MG TAB PO SCH (21:00)
[2017-05-29 08:19] VITALS: BP 119/75
[2017-05-29] MEDS: OLANzapine TAB* 5 MG PO SCH (08:20)
[2017-05-29] MEDS: Vitamin THERAPEUTIC TAB PO SCH (08:21)
[2017-05-29] MEDS: LORazepam TAB(*) 0.5 MG PO PRN (09:54)
[2017-05-29] MEDS ORDERED: FLUoxetine CAP* 20 MG PO SCH (11:00)
--- NOTE | 2017-05-30 02:37 | DS ---
CC: [facility]; Dr. Monica Thomas* DISCHARGE SUMMARY: DATE OF ADMISSION: 05/24/17 DATE OF DISCHARGE: 05/29/17 SUPERVISING PSYCHIATRIST: Dr. Taco Montoya* (dictated by DANIEL Arce) . DISCHARGE DIAGNOSES: Unspecified psychotic disorder, generalized anxiety disorder, and rule out psychosis secondary to brain injury. CONDITION AT THE TIME OF DISCHARGE: Improved. The patient reports much improvement in psychotic symptoms and anxiety. He denies auditory hallucinations. He denies delusions or intrusive thoughts. He reports anxiety is improved with current medications. He is agreeable to a trial fluoxetine for generalized anxiety disorder as this is a preferred combination with Zyprexa for both psychosis and mood disorders. The patient is encouraged to utilize lorazepam sparingly and as needed. The patient and his girlfriend, Malou are requesting discharge and stating that he is presenting much more euthymic and organized. Tomás states that she has known patient for over 10 years and that this is the best she has seen him. MENTAL STATUS EXAM: The patient is a middle-aged healthy appearing white male wearing his own clothing. He is alert and oriented x3. He is wearing his own clothing and grooming is adequate. He is euthymic with full range of affect. Alert and oriented x3. Good eye contact. Speech is soft and articulate. His thought content is logical and goal directed. Circumstantial in regards to discharge instructions. Thought content is negative for SI, SIB, HI, or . Negative for AV hallucinations. He denies delusions or preoccupations. His insight is fair. His judgment is fair. Fund of knowledge is adequate. DISCHARGE INSTRUCTIONS: Instructions are given to the patient and his girlfriend by nursing staff. A. Medications are electronically prescribed to [facility] per request. He is discharged on the following medications: 1. Fluoxetine 20 mg p.o. daily. 2. Lorazepam 0.5 mg p.o. t.i.d. p.r.n. anxiety. 3. Olanzapine 5 mg p.o. b.i.d. B. Diet: Regular. C. Activity: Ambulation as tolerated. Tobacco cessation is not applicable. There are no pending labs or diagnostic studies at the time of discharge. D. Followup Care: Patient was given an intake at [facility], will be called by social media marketing analyst with appointment as we are waiting for call back from [facility]. He is also encouraged to follow up with his primary care provider, Dr. Jeanette Thomas. HOSPITAL COURSE: A. Reason for Admission: Patient came to the emergency department in an acute psychotic condition. This was his second hospitalization on this unit, first one being in September of this year. B. Psychiatric treatment rendered: Patient was admitted on Adult Behavioral Services Unit on voluntary status. He was placed on 15-minute checks for safety and his code status is full. He was encouraged to participate in supportive milieu, individual and group therapy when able to tolerate. He received initial doses of Zyprexa and Ativan by admitting psychiatrist. The patient then was continued on h.s. Zyprexa and Haldol p.r.n. for psychosis and agitation. The following day upon meeting with this news writer, the patient requested to receive Zyprexa twice a day as he had noted an improvement in symptoms today that he received two separate doses. He was able to articulate his symptoms and understand that they were not based on reality. He reported command hallucinations, the sensation of leaving his body and delusions about . He responded well to medications and was able to participate in the unit programming. He was decreased to 30-minute check observation status and allowed to go on staff pass. He was agreeable to follow up with [facility]. He and his girlfriend cited need for assistance in case management and housing resources. He will stay with his girlfriend, Malou, until a permanent housing is identified. He was safe in all checks and behavioral control. He denied suicidal ideation. Denied psychotic symptoms. He was observed to be well related, cooperative, and pleasant. He was discharged by nursing staff and given written instructions. DNAIEL ARCE [id number]/CPS #: [id number] JAIME
== END 2017-05-29 11:45 | disposition home or self-care (01) | DRG 751 ==
LOC: ED 13:25 → BSU 21:55
PROVIDERS: ADMIT Psychiatry & Neurology Psychiatry; ATTEND Psychiatry & Neurology Psychiatry
DX: F29 Unspecified psychosis not due to a substance or known physiological condition (principal); F41.1 Generalized anxiety disorder
CPT/HCPCS: 36415; 80053; 80307; 80320; 80329; 81003; 84443; 85025; 99222; 99232; A9270-GY; G0480

== ENCOUNTER 2024-06-18 13:04 | Inpatient (IN) ==
[~2024-06-18 13:04] MED LIST: Rocuronium 50 mg VIAL 10 mg/ml 5 ml VIAL (50 mg) ONE; Succinylcholine 200 mg VIAL 20 mg/ml 10 ml VIAL (200 mg) ONE
[2024-06-18] MEDS: Etomidate 20 mg/10 ml 2 MG/ML 10 ml VIAL IV ONE (13:09)
[2024-06-18] MEDS: Succinylcholine 200 mg VIAL 20 mg/ml 10 ml VIAL (200 mg) IV ONE (13:09)
[2024-06-18] MEDS ORDERED: fentaNYL 100 mcg/2 ml 50 MCG/ML VIAL ONE (13:11)
[2024-06-18] MEDS ORDERED: Propofol 10 mg/ml 100 ML BTL 1,000 MG/100 ML BTL ONE (13:11)
[2024-06-18] MEDS ORDERED: Norepinephrine 4 MG/250mL D5W 4,000 MCG/250 ML BAG IV ONE (13:15)
[2024-06-18] MEDS: Propofol 10 mg/ml 100 ML BTL 1,000 MG/100 ML BTL IV SCH (13:15)
[2024-06-18] MEDS ORDERED: Succinylcholine 200 mg VIAL 20 mg/ml 10 ml VIAL (200 mg) ONE (13:19)
[2024-06-18] MEDS ORDERED: Etomidate 40 mg/20 ml (2 MG/ML) 20 ml VIAL (40 mg) ONE (13:19)
[2024-06-18] MEDS: fentaNYL 100 mcg/2 ml 50 MCG/ML VIAL IV SLOW PU ONE (13:19)
[2024-06-18 13:27] LABS: Hematocrit 38.5 % (38-53); Hemoglobin 12.9 g/dL (13.2-16.3); Mean Corpuscular Hgb Conc 33.5 g/dL (31-36); Mean Corpuscular Volume 86.8 fL (80-97); Mean Platelet Volume 8.1 fL (7.5-11.2); Platelet Count 226 10^3/uL (150-450); Red Blood Count 4.44 10^6/uL (4.06-5.63); Red Cell Distribution Width 14.4 % (12-17); White Blood Count 11.2 10^3/uL (3.6-10.2)
[2024-06-18 13:54] LABS: High Sens Troponin Baseline 10 pg/mL (<20)
[2024-06-18 13:56] LABS: ABS Lymphocytes 0.5 10^3/uL (1.0-4.8); ABS Monocytes 1.6 10^3/uL (0.0-1.1); ABS Neutrophils 9.2 10^3/uL (1.5-7.6); Lymphocyte % 4.5 %
[2024-06-18 14:36] LABS: Urine Appearance Clear; Urine Bilirubin 1+ (Small) (Negative); Urine Blood Negative (Negative); Urine Color Yellow; Urine Ketones 3+ (80mg/dL) (Negative)
[2024-06-18 14:37] LABS: Urine Nitrite Negative (Negative); Urine Protein 1+ (30 mg/dL) (Negative); Urine Urobilinogen 1.0 (Negative) (Negative)
[2024-06-18 14:38] LABS: Urine Specific Gravity 1.027 (1.002-1.030)
[2024-06-18 14:43] LABS: Urine Benzodiazepine Screen Presumptive Positive (None Detect); Urine Cannabinoids Screen None Detected (None Detect); Urine Opiates Screen None Detected (None Detect)
[2024-06-18] MEDS: Lactated Ringers 1000 ml BAG 1,000 ML IV ONE ×2 (14:44→19:23)
[2024-06-18] MEDS: Piperacillin/Tazobac 3.375 BAG 3.375 GM/100 ML BAG IV ONE (14:45)
[2024-06-18 14:48] LABS: Acetaminophen < 15 mcg/mL; Alcohol, S < 13 mg/dL (<13); Salicylate < 2.50 mg/dL (<30)
[2024-06-18 14:49] LABS: ALT 65 U/L (7-52); Albumin 3.8 g/dL (3.2-5.2); Albumin/Globulin Ratio 1.7 (1-3); Alkaline Phosphatase 88 U/L (35-149); Blood Urea Nitrogen 16 mg/dL (6-24); CO2 Carbon Dioxide 24 mmol/L (22-32); Calcium 8.4 mg/dL (8.6-10.3); Chloride 104 mmol/L (101-111); Creatinine, Serum 0.53 mg/dL (0.67-1.17); Globulin 2.3 g/dL (2-4); Glucose 181 mg/dL (70-100); Sodium 139 mmol/L (135-145); Total Protein 6.1 g/dL (6.4-8.9); eGFR CKD-EPI 115.4 (>60)
[2024-06-18 14:52] LABS: Anion Gap 11 mmol/L (2-16)
[2024-06-18] MEDS: Vancomycin 1,500 MG in NS 0.9% 250 ml 250 ML IVPB ONE (14:57)
[2024-06-18 14:58] LABS: High Sensitivity Troponin 1 Hr 12 pg/mL (<20)
[2024-06-18 15:28] LABS: Resp Rate 18
[2024-06-18 15:30] LABS: PCO2 Arterial 46 mmHg (35-45); PO2 Arterial 293 mmHg (80-100)
[2024-06-18] MEDS: fentaNYL INFUSION 50 mcg/mL VL 2,500 MCG/50 ML VIAL IV SCH (15:57)
[2024-06-18] MEDS ORDERED: Zosyn per Pharmacy NOTE FOLLOW UP SCH (16:00)
[2024-06-18] MEDS ORDERED: HYDROmorphone 1 MG/1 ML SYRINGE IV SLOW PU PRN (16:10)
[2024-06-18 17:25] LABS: TSH Ultra Thyroid Stim Horm 0.38 mcIU/mL (0.34-5.60)
[2024-06-18 17:31] LABS: Prolactin 11.9 ng/mL (1.0-20.0)
[2024-06-18] MEDS: Lidocaine 1% VIAL 10 MG/ML 30 ML VIAL ONE (18:10)
[2024-06-18] MEDS: Lidocaine 1% VIAL 10 MG/ML 30 ML VIAL INJ ONE (18:10)
[2024-06-18] MEDS: Enoxaparin 40 MG/0.4 ML SYR SUBCUT SCH (19:22)
[2024-06-18] MEDS: Chlorhexidine MOUTHWASH 0.12% 15 ML UDC TOPICAL SCH (19:22)
[2024-06-18] MEDS: ZOSYN 3.375 GM Q8H per EXTENDED INFUSION IV SCH ×2 (19:35→21:32)
[2024-06-18 19:57] LABS: Creatine Kinase 3594 U/L (10-223)
[2024-06-18] MEDS: Acetaminophen IV 1 GM/100ML 1,000 MG/100 ML BAG IV PRN (20:25)
[2024-06-18] MEDS ORDERED: Senna TAB 8.6 mg TAB PO SCH (21:00)
[2024-06-18] MEDS: Famotidine IV 10 MG/ML 2 ml VIAL (20 mg) IV SLOW PU SCH (21:17)
[2024-06-18] MEDS: Senna TAB 8.6 mg TAB FEED TUBE SCH (21:20)
[2024-06-18 22:37] LABS: Potassium, Whole Blood 3.3 mmol/L (3.4-4.5)
[2024-06-18] MEDS: Lactated Ringers 1000 ml BAG 1,000 ML IV SCH (23:58)
[2024-06-19] MEDS: Potassium Chloride LIQUID 20 MEQ/15 ML LIQUID NG TUBE ONE (00:34)
[2024-06-19 04:22] LABS: ABS Basophils 0.1 10^3/uL (0.0-0.1); ABS Lymphocytes 1.2 10^3/uL (1.0-4.8); ABS Monocytes 1.1 10^3/uL (0.0-1.1); ABS Neutrophils 6.7 10^3/uL (1.5-7.6); Eosinophil % 0.1 %; Hematocrit 31.7 % (38-53); Hemoglobin 10.7 g/dL (13.2-16.3); Lymphocyte % 12.9 %; Mean Corpuscular Hemoglobin 29.6 pg (27-33); Mean Corpuscular Hgb Conc 33.9 g/dL (31-36); Mean Corpuscular Volume 87.2 fL (80-97); Platelet Count 181 10^3/uL (150-450); Red Blood Count 3.63 10^6/uL (4.06-5.63); Red Cell Distribution Width 14.5 % (12-17)
[2024-06-19 06:54] LABS: Albumin 2.9 g/dL (3.2-5.2); Albumin/Globulin Ratio 1.5 (1-3); Calcium 7.7 mg/dL (8.6-10.3); Creatinine, Serum 0.47 mg/dL (0.67-1.17); Globulin 1.9 g/dL (2-4); Magnesium 1.9 mg/dL (1.9-2.7); Phosphorus 2.2 mg/dL (2.5-5.0); Potassium 3.9 mmol/L (3.5-5.0); Total Bilirubin 0.8 mg/dL (0.2-1.0); Total Protein 4.8 g/dL (6.4-8.9); eGFR CKD-EPI 119.7 (>60)
[2024-06-19] MEDS ORDERED: Polyethylene Glycol 3350 17 GM PACKET PO SCH (09:00)
[2024-06-19] MEDS: Magnesium Sulfate 2 gm BAG 2 GM/50 ML BAG IVPB ONE (09:35)
[2024-06-19] MEDS: Potassium Phosphate IV 10 MMOL in NS 0.9% 250 ml 250 ML IVPB ONE (09:36)
[2024-06-19] MEDS: Polyethylene Glycol 3350 17 GM PACKET FEED TUBE SCH (09:45)
[2024-06-19] MEDS: Fluoxetine LIQ 20 MG/5 ML UDC FEED TUBE SCH (09:45)
[2024-06-19] MEDS: Lactated Ringers 1000 ml BAG 500 ML IV ONE (09:46)
[2024-06-19] MEDS ORDERED: Vancomycin per Pharmacy 1 EA NOTE FOLLOW UP SCH (19:00)
[2024-06-19] MEDS: Vancomycin 1,500 MG in NS 0.9% 250 ml 250 ML IVPB ONE (19:25)
[2024-06-20] MEDS: Vancomycin 1,250 MG in NS 0.9% 250 ml 250 ML IVPB SCH (03:19)
[2024-06-20 04:53] LABS: ABS Eosinophils 0.1 10^3/uL (0.0-0.5); ABS Lymphocytes 1.4 10^3/uL (1.0-4.8); ABS Monocytes 0.8 10^3/uL (0.0-1.1); ABS Neutrophils 5.3 10^3/uL (1.5-7.6); Eosinophil % 0.9 %; Hematocrit 28.2 % (38-53); Hemoglobin 9.6 g/dL (13.2-16.3); Lymphocyte % 18.8 %; Mean Corpuscular Hemoglobin 29.5 pg (27-33); Mean Corpuscular Hgb Conc 34.1 g/dL (31-36); Mean Corpuscular Volume 86.6 fL (80-97); Mean Platelet Volume 8.2 fL (7.5-11.2); Platelet Count 174 10^3/uL (150-450); Red Blood Count 3.26 10^6/uL (4.06-5.63); Red Cell Distribution Width 14.4 % (12-17); White Blood Count 7.7 10^3/uL (3.6-10.2)
[2024-06-20 05:13] LABS: PCO2 Arterial 42 mmHg (35-45); PO2 Arterial 97 mmHg (80-100)
[2024-06-20 05:26] LABS: Calcium 7.1 mg/dL (8.6-10.3); Creatinine, Serum 0.41 mg/dL (0.67-1.17); Magnesium 1.9 mg/dL (1.9-2.7); Phosphorus 2.3 mg/dL (2.5-5.0); Potassium 3.3 mmol/L (3.5-5.0); eGFR CKD-EPI 124.8 (>60)
[2024-06-20] MEDS ORDERED: KCL 20 MEQ/100 ML IVPREMIX 20 MEQ/100 ML BAG IV SCH (10:00)
[2024-06-20] MEDS: KCL premix 10 MEQ/50 ML x 3 RUNS IV SCH ×2 (10:07→15:52)
[2024-06-20] MEDS: Potassium Phosphate IV 15 MMOL in NS 0.9% 250 ml 250 ML IVPB ONE (10:27)
[2024-06-20] MEDS: Vancomycin Trough Check NOTE FOLLOW UP ONE (21:40)
[2024-06-21 04:12] LABS: ABS Eosinophils 0.1 10^3/uL (0.0-0.5); ABS Lymphocytes 0.9 10^3/uL (1.0-4.8); ABS Monocytes 0.8 10^3/uL (0.0-1.1); Hematocrit 29.9 % (38-53); Hemoglobin 9.9 g/dL (13.2-16.3); Lymphocyte % 11.6 %; Mean Corpuscular Volume 87.7 fL (80-97); Mean Platelet Volume 7.7 fL (7.5-11.2); Platelet Count 202 10^3/uL (150-450); Red Blood Count 3.41 10^6/uL (4.06-5.63); Red Cell Distribution Width 14.4 % (12-17); White Blood Count 7.8 10^3/uL (3.6-10.2)
[2024-06-21] MEDS: fentaNYL 100 mcg/2 ml 50 MCG/ML VIAL IV SLOW PU PRN (04:36)
[2024-06-21 05:34] LABS: Calcium 6.2 mg/dL (8.6-10.3); Creatinine, Serum 0.3 mg/dL (0.67-1.17); Magnesium 1.5 mg/dL (1.9-2.7); Potassium 2.9 mmol/L (3.5-5.0); eGFR CKD-EPI 137.1 (>60)
[2024-06-21] MEDS: CALCIUM GLUCONATE 1GM/50ML NS 1 GM/50 ML BAG IV ONE (06:17)
[2024-06-21] MEDS: Magnesium Sulfate 2 gm BAG 2 GM/50 ML BAG IVPB ONE (06:21)
[2024-06-21] MEDS: Potassium Phosphate IV 15 MMOL in NS 0.9% 250 ml 250 ML IVPB ONE (11:02)
[2024-06-21] MEDS: Dextran 70/Hypromellose Tears Eye Drops 15 ml BTL (for Artificials Tears) BOTH EYES PRN (17:53)
[2024-06-22 04:50] LABS: ABS Eosinophils 0.2 10^3/uL (0.0-0.5); ABS Lymphocytes 0.8 10^3/uL (1.0-4.8); ABS Monocytes 0.9 10^3/uL (0.0-1.1); ABS Neutrophils 6.3 10^3/uL (1.5-7.6); Eosinophil % 2.3 %; Hematocrit 30.1 % (38-53); Hemoglobin 10.1 g/dL (13.2-16.3); Lymphocyte % 9.2 %; Mean Corpuscular Hemoglobin 28.9 pg (27-33); Mean Corpuscular Hgb Conc 33.6 g/dL (31-36); Mean Platelet Volume 7.5 fL (7.5-11.2); Platelet Count 256 10^3/uL (150-450); Red Cell Distribution Width 14.3 % (12-17); White Blood Count 8.3 10^3/uL (3.6-10.2)
[2024-06-22 05:23] LABS: Calcium 7.9 mg/dL (8.6-10.3); Creatinine, Serum 0.43 mg/dL (0.67-1.17); Magnesium 1.8 mg/dL (1.9-2.7); Potassium 3.7 mmol/L (3.5-5.0)
[2024-06-22] MEDS: Magnesium Sulfate 2 gm BAG 2 GM/50 ML BAG IVPB ONE (05:43)
[2024-06-22] MEDS: Magnesium Sulfate 2 gm BAG 2 GM/50 ML BAG ONE (05:44)
[2024-06-22 08:30] LABS: Phosphorus 3.2 mg/dL (2.5-5.0)
[2024-06-22] MEDS: Potassium Chloride LIQUID 20 MEQ/15 ML LIQUID NG TUBE ONE (09:02)
[2024-06-22] MEDS: Saliva Substitute (NF) 1 SPRAY BTL MT PRN (14:54)
[2024-06-23 04:30] LABS: ABS Eosinophils 0.4 10^3/uL (0.0-0.5); ABS Lymphocytes 1.1 10^3/uL (1.0-4.8); ABS Monocytes 1.2 10^3/uL (0.0-1.1); ABS Neutrophils 6.5 10^3/uL (1.5-7.6); Eosinophil % 4.1 %; Lymphocyte % 11.9 %; Mean Corpuscular Hemoglobin 28.8 pg (27-33); Mean Corpuscular Hgb Conc 33.4 g/dL (31-36); Mean Corpuscular Volume 86.4 fL (80-97); Mean Platelet Volume 7.5 fL (7.5-11.2); Platelet Count 288 10^3/uL (150-450); Red Blood Count 3.47 10^6/uL (4.06-5.63); Red Cell Distribution Width 14.2 % (12-17); White Blood Count 9.2 10^3/uL (3.6-10.2)
[2024-06-23 04:50] LABS: Anion Gap 6 mmol/L (2-16); Blood Urea Nitrogen 9 mg/dL (6-24); CO2 Carbon Dioxide 31 mmol/L (22-32); Chloride 108 mmol/L (101-111); Creatinine, Serum 0.49 mg/dL (0.67-1.17); Glucose 139 mg/dL (70-100); Potassium 3.8 mmol/L (3.5-5.0); Sodium 145 mmol/L (135-145); eGFR CKD-EPI 118.2 (>60)
[2024-06-23 08:20] LABS: % Iron Saturation 13 % (15-55); .Transferrin 112 mg/dL (203-362); Iron < 20 ug/dL (50-212); Total Iron Binding Capacity 157 mcg/dL (250-450); Unsaturated Iron Binding 137 ug/dL
[2024-06-23] MEDS: Potassium Chloride LIQUID 20 MEQ/15 ML LIQUID NG TUBE ONE (08:40)
[2024-06-23 08:48] LABS: Ferritin 164.7 ng/mL (24-336)
[2024-06-23 08:49] LABS: Folate 9.79 ng/mL (5.90-24.80)
[2024-06-23 08:50] LABS: Vitamin B12 388 pg/mL (180-914)
[2024-06-23] MEDS ORDERED: Vancomycin Trough Check NOTE FOLLOW UP ONE (11:30)
[2024-06-23] MEDS: Anidulafungin 200 MG in NS 0.9% 250 ml 200 ML IVPB ONE (11:49)
[2024-06-23] MEDS ORDERED: Lorazepam PYXIS KEY PRN (22:29)
[2024-06-23] MEDS: LORazepam 2 mg VIAL 1 ml IV PUSH ONE (22:37)
[2024-06-24 06:18] LABS: Hematocrit 30.8 % (38-53); Hemoglobin 10.2 g/dL (13.2-16.3); Mean Corpuscular Hemoglobin 28.6 pg (27-33); Mean Corpuscular Hgb Conc 33.2 g/dL (31-36); Mean Corpuscular Volume 86.2 fL (80-97); Mean Platelet Volume 7.6 fL (7.5-11.2); Platelet Count 351 10^3/uL (150-450); Red Blood Count 3.58 10^6/uL (4.06-5.63); Red Cell Distribution Width 14.3 % (12-17)
[2024-06-24 06:34] LABS: Albumin 2.8 g/dL (3.2-5.2); Albumin/Globulin Ratio 1.3 (1-3); Calcium 8.4 mg/dL (8.6-10.3); Creatinine, Serum 0.45 mg/dL (0.67-1.17); Globulin 2.1 g/dL (2-4); Magnesium 1.9 mg/dL (1.9-2.7); Potassium 3.9 mmol/L (3.5-5.0); Total Bilirubin 0.4 mg/dL (0.2-1.0); Total Protein 4.9 g/dL (6.4-8.9); eGFR CKD-EPI 121.3 (>60)
[2024-06-24 07:29] LABS: ABS Eosinophils 0.4 10^3/uL (0.0-0.5); ABS Monocytes 1.2 10^3/uL (0.0-1.1); ABS Neutrophils 6.4 10^3/uL (1.5-7.6); Lymphocyte % 11.4 %; RBC Morphology Normal (Normal)
[2024-06-24 09:56] LABS: C Reactive Protein 165.15 mg/L (<8.01)
[2024-06-24] MEDS: Anidulafungin 100 MG in NS 0.9% 100 ml BAG 100 ML IVPB SCH (11:28)
[2024-06-24] MEDS: Potassium Chloride LIQUID 20 MEQ/15 ML LIQUID NG TUBE ONE (11:32)
[2024-06-25 07:08] LABS: Hematocrit 31.2 % (38-53); Hemoglobin 10.6 g/dL (13.2-16.3); Mean Corpuscular Hemoglobin 29.2 pg (27-33); Mean Corpuscular Volume 85.9 fL (80-97); Mean Platelet Volume 7.7 fL (7.5-11.2); Platelet Count 380 10^3/uL (150-450); Red Blood Count 3.63 10^6/uL (4.06-5.63); White Blood Count 10.2 10^3/uL (3.6-10.2)
[2024-06-25 07:34] LABS: Calcium 8.4 mg/dL (8.6-10.3); Creatinine, Serum 0.47 mg/dL (0.67-1.17); Magnesium 2.1 mg/dL (1.9-2.7); Potassium 4.1 mmol/L (3.5-5.0); eGFR CKD-EPI 119.7 (>60)
[2024-06-25 08:04] LABS: ABS Nucleated RBC 0.01 10^3/ul; RBC Morphology Normal (Normal)
[2024-06-25 08:05] LABS: ABS Eosinophils 0.2 10^3/ul (0.0-0.5); ABS Lymphocytes 1.6 10^3/ul (1.0-4.8); ABS Monocytes 0.7 10^3/ul (0.0-1.1); ABS Neutrophils 7.7 10^3/ul (1.5-7.6)
[2024-06-25] MEDS: Ferric Gluconate IV 250 MG in NS 0.9% 250 ml 200 ML IVPB SCH (15:06)
[2024-06-25 15:25] LABS: Fungitell Qualitative Result Negative (Negative); Fungitell Quantitative Value <31 pg/mL (<60 pg/mL)
[2024-06-26 06:06] LABS: ABS Eosinophils 0.4 10^3/uL (0.0-0.5); ABS Monocytes 1.3 10^3/uL (0.0-1.1); ABS Nucleated RBC 0.01 10^3/ul; Eosinophil % 3.3 %; Hematocrit 31.5 % (38-53); Hemoglobin 10.5 g/dL (13.2-16.3); Lymphocyte % 7.7 %; Mean Corpuscular Hemoglobin 28.7 pg (27-33); Mean Corpuscular Hgb Conc 33.4 g/dL (31-36); Mean Platelet Volume 7.5 fL (7.5-11.2); Nucleated Red Blood Cells % 0.1 %/100WBC (0.0-0.8); Platelet Count 411 10^3/uL (150-450); Red Blood Count 3.66 10^6/uL (4.06-5.63); Red Cell Distribution Width 14.3 % (12-17); White Blood Count 12.7 10^3/uL (3.6-10.2)
[2024-06-26 06:11] LABS: INR 1.29 (0.85-1.14)
[2024-06-26 06:40] LABS: Calcium 8.6 mg/dL (8.6-10.3); Creatinine, Serum 0.49 mg/dL (0.67-1.17); Magnesium 2.2 mg/dL (1.9-2.7); Potassium 3.9 mmol/L (3.5-5.0); eGFR CKD-EPI 118.2 (>60)
[2024-06-26] MEDS: Furosemide 20 mg/2 ml IV VIAL IV SLOW PU ONE (11:44)
[2024-06-26] MEDS: LORazepam 2 mg VIAL 1 ml IV PUSH ONE (11:44)
[2024-06-26 19:50] LABS: Anaplasma phagocytophilum Negative (Negative); B. miyamotoi PCR, B Negative (Negative); Babesia divergens/MO-1 Negative (Negative); Babesia ducani Negative (Negative); Ehrlichia chaffeensis Negative (Negative); Ehrlichia ewingii/canis Negative (Negative); Ehrlichia muris eauclairensis Negative (Negative)
[2024-06-27 07:00] LABS: Hematocrit 33.7 % (38-53); Hemoglobin 11.1 g/dL (13.2-16.3); Mean Corpuscular Hemoglobin 28.6 pg (27-33); Mean Corpuscular Hgb Conc 32.8 g/dL (31-36); Mean Corpuscular Volume 87.1 fL (80-97); Mean Platelet Volume 7.8 fL (7.5-11.2); Platelet Count 446 10^3/uL (150-450); Red Blood Count 3.87 10^6/uL (4.06-5.63); Red Cell Distribution Width 14.2 % (12-17); White Blood Count 11.5 10^3/uL (3.6-10.2)
[2024-06-27 07:18] LABS: Calcium 8.6 mg/dL (8.6-10.3); Creatinine, Serum 0.52 mg/dL (0.67-1.17); Magnesium 2.3 mg/dL (1.9-2.7); eGFR CKD-EPI 116.1 (>60)
[2024-06-27 08:26] LABS: ABS Eosinophils 0.6 10^3/uL (0.0-0.5); ABS Lymphocytes 1.2 10^3/uL (1.0-4.8); ABS Neutrophils 8.7 10^3/uL (1.5-7.6); ABS Nucleated RBC 0.01 10^3/ul; Eosinophil % 4.9 %; Nucleated Red Blood Cells % 0.1 %/100WBC (0.0-0.8)
[2024-06-28 07:12] LABS: Hematocrit 31.5 % (38-53); Hemoglobin 10.5 g/dL (13.2-16.3); Mean Corpuscular Hemoglobin 28.7 pg (27-33); Mean Corpuscular Hgb Conc 33.4 g/dL (31-36); Mean Corpuscular Volume 86.1 fL (80-97); Platelet Count 497 10^3/uL (150-450); Red Blood Count 3.66 10^6/uL (4.06-5.63); Red Cell Distribution Width 14.3 % (12-17); White Blood Count 12.8 10^3/uL (3.6-10.2)
[2024-06-28 07:25] LABS: Calcium 8.6 mg/dL (8.6-10.3); Creatinine, Serum 0.46 mg/dL (0.67-1.17); Potassium 3.9 mmol/L (3.5-5.0); eGFR CKD-EPI 120.5 (>60)
[2024-06-28 07:41] LABS: ABS Basophils 0.1 10^3/uL (0.0-0.1); ABS Eosinophils 0.4 10^3/uL (0.0-0.5); ABS Lymphocytes 1.4 10^3/uL (1.0-4.8); ABS Neutrophils 9.9 10^3/uL (1.5-7.6); Eosinophil % 3.5 %; Lymphocyte % 10.7 %
[2024-06-29 07:23] LABS: Hematocrit 33.2 % (38-53); Hemoglobin 10.9 g/dL (13.2-16.3); Mean Corpuscular Hemoglobin 28.6 pg (27-33); Mean Corpuscular Hgb Conc 32.8 g/dL (31-36); Mean Corpuscular Volume 87.1 fL (80-97); Mean Platelet Volume 8.1 fL (7.5-11.2); Platelet Count 522 10^3/uL (150-450); Red Blood Count 3.81 10^6/uL (4.06-5.63); Red Cell Distribution Width 14.2 % (12-17); White Blood Count 12.2 10^3/uL (3.6-10.2)
[2024-06-29 07:28] LABS: Calcium 8.8 mg/dL (8.6-10.3); Creatinine, Serum 0.47 mg/dL (0.67-1.17); Magnesium 2.1 mg/dL (1.9-2.7); eGFR CKD-EPI 119.7 (>60)
[2024-06-29 09:10] LABS: ABS Basophils 0.1 10^3/uL (0.0-0.1); ABS Eosinophils 0.4 10^3/uL (0.0-0.5); ABS Lymphocytes 1.4 10^3/uL (1.0-4.8); ABS Monocytes 0.8 10^3/uL (0.0-1.1); ABS Neutrophils 9.5 10^3/uL (1.5-7.6); Eosinophil % 3.4 %; Lymphocyte % 11.3 %; RBC Morphology Normal (Normal)
[2024-06-29] MEDS ORDERED: Flumazenil 0.5 mg/5 ml 0.1 MG/ML 5 ml VIAL IV PRN (10:59)
[2024-06-29] MEDS ORDERED: Naloxone 0.4 mg VIAL 0.4 mg/ml 1 ml VIAL IV PUSH PRN (10:59)
[2024-06-29 12:04] LABS: PSA Screen Ultra Sensitive 0.841 ng/mL (0-4.000)
[2024-06-29] MEDS: Bupivacaine 0.25% SDV PF 10 ML VIAL INJ ONE (13:18)
[2024-06-29] MEDS: ceFAZolin 1 GM ADVAN 1 GM ADDV.VIAL IVPB ONE (13:18)
[2024-06-29] MEDS: fentaNYL 250 mcg/5 ml 50 MCG/ML 5 ml VIAL (250 MCG) ONE (13:19)
[2024-06-29] MEDS: Glucagon 1 mg VIAL KIT ONE (13:19)
[2024-06-29] MEDS: fentaNYL 100 mcg/2 ml 50 MCG/ML VIAL IV SLOW PU ONE (13:20)
[2024-06-29] MEDS: Midazolam 10 mg/10 ml VIAL 1 mg/ml 10 ml VIAL (10 mg) IV SLOW PU ONE (13:20)
[2024-06-29] MEDS: Midazolam 2 mg/2 ml VIAL 1 mg/ml 2 ml VIAL (2 mg) ONE (13:20)
[2024-06-29] MEDS: Bupivacaine 0.5% SDV PF 30ML VIAL ONE (13:21)
[2024-06-29] MEDS: HYDROmorphone 0.5 MG/0.5 ML SYRINGE IV SLOW PU ONE (14:03)
[2024-06-29] MEDS: Furosemide 20 mg/2 ml IV VIAL IV SLOW PU ONE (18:10)
[2024-06-29] MEDS: cefTRIAXone 1 gm/50 mL D5W 1 GM/50 ML BAG IV SCH (18:10)
[2024-06-29] MEDS: Azithromycin 500 mg/250 ml NS 500 MG/250 ML BAG IVPB SCH (20:16)
[2024-06-30] MEDS: LORazepam 2 mg VIAL 1 ml IV PUSH PRN (00:02)
[2024-06-30 06:15] LABS: ABS Basophils 0.1 10^3/uL (0.0-0.1); ABS Eosinophils 0.2 10^3/uL (0.0-0.5); ABS Lymphocytes 1.5 10^3/uL (1.0-4.8); ABS Monocytes 0.8 10^3/uL (0.0-1.1); ABS Neutrophils 10.6 10^3/uL (1.5-7.6); Eosinophil % 1.8 %; Hematocrit 32.8 % (38-53); Hemoglobin 10.8 g/dL (13.2-16.3); Lymphocyte % 11.3 %; Mean Corpuscular Hemoglobin 28.7 pg (27-33); Mean Corpuscular Hgb Conc 33.1 g/dL (31-36); Mean Corpuscular Volume 86.8 fL (80-97); Mean Platelet Volume 8.2 fL (7.5-11.2); Platelet Count 559 10^3/uL (150-450); Red Blood Count 3.78 10^6/uL (4.06-5.63); Red Cell Distribution Width 14.2 % (12-17); White Blood Count 13.2 10^3/uL (3.6-10.2)
[2024-06-30 06:48] LABS: Calcium 8.6 mg/dL (8.6-10.3); Creatinine, Serum 0.47 mg/dL (0.67-1.17); Magnesium 2.1 mg/dL (1.9-2.7); Potassium 3.9 mmol/L (3.5-5.0); eGFR CKD-EPI 119.7 (>60)
[2024-06-30] MEDS: Furosemide 20 mg/2 ml IV VIAL IV SLOW PU ONE (11:33)
[2024-06-30 11:35] LABS: C Reactive Protein 71.92 mg/L (<8.01)
[2024-06-30 13:50] LABS: Urine Appearance Clear; Urine Bilirubin Negative (Negative); Urine Blood Negative (Negative); Urine Color Light-Yellow; Urine Glucose Negative (Negative); Urine Ketones Negative (Negative); Urine Nitrite Negative (Negative); Urine Protein Negative (Negative); Urine Specific Gravity 1.012 (1.002-1.030); Urine Urobilinogen Negative (Negative); Urine pH 6.5 (5.0-8.0)
[2024-07-01 05:53] LABS: ABS Basophils 0.1 10^3/uL (0.0-0.1); ABS Eosinophils 0.2 10^3/uL (0.0-0.5); ABS Lymphocytes 1.3 10^3/uL (1.0-4.8); ABS Monocytes 0.9 10^3/uL (0.0-1.1); ABS Neutrophils 9.1 10^3/uL (1.5-7.6); Eosinophil % 1.9 %; Hematocrit 33.9 % (38-53); Lymphocyte % 11.3 %; Mean Corpuscular Hemoglobin 28.3 pg (27-33); Mean Corpuscular Hgb Conc 32.5 g/dL (31-36); Mean Corpuscular Volume 87.2 fL (80-97); Platelet Count 575 10^3/uL (150-450); Red Blood Count 3.88 10^6/uL (4.06-5.63); Red Cell Distribution Width 14.5 % (12-17); White Blood Count 11.5 10^3/uL (3.6-10.2)
[2024-07-01 06:04] LABS: Calcium 9.1 mg/dL (8.6-10.3); Creatinine, Serum 0.52 mg/dL (0.67-1.17); Magnesium 2.2 mg/dL (1.9-2.7); Potassium 3.6 mmol/L (3.5-5.0); eGFR CKD-EPI 116.1 (>60)
[2024-07-02 05:35] VITALS: BP 121/79
[2024-07-02 06:22] LABS: ABS Basophils 0.1 10^3/uL (0.0-0.1); ABS Eosinophils 0.2 10^3/uL (0.0-0.5); ABS Lymphocytes 1.2 10^3/uL (1.0-4.8); ABS Monocytes 0.7 10^3/uL (0.0-1.1); ABS Neutrophils 6.7 10^3/uL (1.5-7.6); Eosinophil % 2.2 %; Hematocrit 33.4 % (38-53); Mean Corpuscular Hemoglobin 28.3 pg (27-33); Mean Corpuscular Hgb Conc 32.9 g/dL (31-36); Mean Platelet Volume 8.2 fL (7.5-11.2); Platelet Count 531 10^3/uL (150-450); Red Blood Count 3.88 10^6/uL (4.06-5.63); Red Cell Distribution Width 14.9 % (12-17); White Blood Count 8.9 10^3/uL (3.6-10.2)
[2024-07-02 06:38] LABS: Calcium 8.9 mg/dL (8.6-10.3); Creatinine, Serum 0.53 mg/dL (0.67-1.17); Magnesium 2.2 mg/dL (1.9-2.7); Potassium 3.5 mmol/L (3.5-5.0); eGFR CKD-EPI 115.4 (>60)
== END 2024-07-02 09:00 | DRG 208 ==
LOC: ED 13:04 → SUATTDRO 15:25 → EDHOLD 15:25 → ICU 15:51 → MED 06-23 10:40
PROVIDERS: ADMIT Internal Medicine Pulmonary Disease; ATTEND Student in an Organized Health Care Education/Training Program

== ENCOUNTER 2024-06-25 08:14 | Inpatient (IN) ==
[2024-07-02] MEDS ORDERED: Lorazepam PYXIS KEY PRN (13:16)
[2024-07-02] MEDS: Enoxaparin 40 MG/0.4 ML SYR SUBCUT SCH (17:54)
[2024-07-02] MEDS: LORazepam 2 mg VIAL 1 ml IV PUSH PRN (17:54)
[2024-07-02] MEDS: Cefdinir SUSP ORALSYR 50 MG/ML (250 mg/5 ml) G TUBE SCH (21:47)
[2024-07-02] MEDS: Docusate LIQ 100 MG/10 ML UDC G TUBE SCH (21:47)
[2024-07-03 07:00] LABS: ABS Basophils 0.1 10^3/uL (0.0-0.1); ABS Eosinophils 0.2 10^3/uL (0.0-0.5); ABS Lymphocytes 1.5 10^3/uL (1.0-4.8); ABS Monocytes 0.7 10^3/uL (0.0-1.1); ABS Neutrophils 6.9 10^3/uL (1.5-7.6); Eosinophil % 2.3 %; Hematocrit 32.8 % (38-53); Hemoglobin 11.1 g/dL (13.2-16.3); Mean Corpuscular Hemoglobin 29.2 pg (27-33); Mean Corpuscular Hgb Conc 33.9 g/dL (31-36); Mean Corpuscular Volume 86.2 fL (80-97); Mean Platelet Volume 7.6 fL (7.5-11.2); Platelet Count 488 10^3/uL (150-450); Red Blood Count 3.81 10^6/uL (4.06-5.63); Red Cell Distribution Width 14.7 % (12-17); White Blood Count 9.4 10^3/uL (3.6-10.2)
[2024-07-03 07:37] LABS: Albumin 3.3 g/dL (3.2-5.2); Albumin/Globulin Ratio 1.5 (1-3); Calcium 8.9 mg/dL (8.6-10.3); Creatinine, Serum 0.54 mg/dL (0.67-1.17); Globulin 2.2 g/dL (2-4); Potassium 3.8 mmol/L (3.5-5.0); Total Bilirubin 0.4 mg/dL (0.2-1.0); Total Protein 5.5 g/dL (6.4-8.9); eGFR CKD-EPI 114.8 (>60)
[2024-07-03] MEDS ORDERED: Docusate LIQ 100 MG/10 ML UDC G TUBE PRN (12:40)
[2024-07-06] MEDS: FLUOXETINE 20 MG/5 ML G TUBE SCH (12:11)
[2024-07-09] MEDS ORDERED: LORazepam 2 mg VIAL 1 ml IV PUSH PRN (22:25)
[2024-07-09] MEDS ORDERED: Lorazepam PYXIS KEY PRN (22:25)
[2024-07-10] MEDS: OLANZapine IM (NF) 10 MG VIAL IM ONE (00:41)
[2024-07-10] MEDS: D5NS 0.9% 1000 ml BAG 1,000 ML IV SCH (00:47)
[2024-07-10] MEDS: Acetaminophen IV 1 GM/100ML 1,000 MG/100 ML BAG IV PRN (00:51)
[2024-07-10 07:34] LABS: ABS Eosinophils 0.2 10^3/uL (0.0-0.5); ABS Lymphocytes 1.3 10^3/uL (1.0-4.8); ABS Monocytes 0.5 10^3/uL (0.0-1.1); ABS Neutrophils 2.8 10^3/uL (1.5-7.6); ABS Nucleated RBC 0.01 10^3/ul; Hematocrit 34.7 % (38-53); Hemoglobin 11.6 g/dL (13.2-16.3); Mean Corpuscular Hemoglobin 29.1 pg (27-33); Mean Corpuscular Hgb Conc 33.5 g/dL (31-36); Mean Corpuscular Volume 87.1 fL (80-97); Mean Platelet Volume 8.9 fL (7.5-11.2); Nucleated Red Blood Cells % 0.1 %/100WBC (0.0-0.8); Platelet Count 246 10^3/uL (150-450); Red Blood Count 3.98 10^6/uL (4.06-5.63); Red Cell Distribution Width 15.8 % (12-17); White Blood Count 4.9 10^3/uL (3.6-10.2)
[2024-07-10 07:52] LABS: Albumin 3.4 g/dL (3.2-5.2); Albumin/Globulin Ratio 1.7 (1-3); Calcium 8.5 mg/dL (8.6-10.3); Creatinine, Serum 0.62 mg/dL (0.67-1.17); Potassium 4.2 mmol/L (3.5-5.0); Total Bilirubin 0.6 mg/dL (0.2-1.0); Total Protein 5.4 g/dL (6.4-8.9); eGFR CKD-EPI 110.1 (>60)
[2024-07-10] MEDS: Pancrelipase/Bicarb NG TUBE 1 PREP/5 ML SOL NG TUBE ONE (11:57)
[2024-07-14 01:27] LABS: Clozapine 77 ng/mL (350-600); Clozapine & Norclozapine Level 141 ng/mL; Norclozapine 64 ng/mL
[2024-07-14 06:29] VITALS: BP 106/75
== END 2024-07-14 15:00 | disposition home or self-care (01) | DRG 91 ==
LOC: PMRU 07-02 11:12
PROVIDERS: ADMIT Physical Medicine & Rehabilitation; ATTEND Physical Medicine & Rehabilitation